=== PATIENT | female | born 1955 | race Caucasian/White ===

== ENCOUNTER → 2018-07-24 | Outpatient (CLI) | payer OTHER, SELFPAY ==
[2018-07-24 15:28] LABS: Hematocrit 37.4 % (37-47); Hemoglobin 12.8 g/dl (12.0-15.0); Mean Corp Hgb Conc 34.2 g/gl (32-36); Mean Corpuscular Hgb 29.9 pg (27.0-32.0); Mean Corpuscular Volume 87.4 fL (81-99); Mean Platelet Vol. 9.7 fl (6.2-12.0); Platelet Count 200 K/mm3 (150-450); RBC Distribution Width CV 13.1 % (11.6-14.6); RBC Distribution Width SD 41.8 fl (35.1-43.9); Red Blood Count 4.28 M/mm3 (4.2-5.4); White Blood Count 3.2 K/mm3 (4.4-11.0)
[2018-07-24 15:31] LABS: Scan Indicated on CBC? Y/N NO
[2018-07-24 15:47] LABS: Anion Gap 4 (5-15); BUN 11 mg/dL (7-18); BUN/Creat Ratio 17.2 RATIO (10-20); Calcium,Total 9.1 mg/dL (8.5-10.1); Chloride 108 mmol/L (98-107); Cholesterol 162 mg/dL (200); Creatinine, Serum 0.64 mg/dL (0.55-1.02); EST Glomerular Filtration Rate 99 mL/min (>60); Est Glom Filt Rate - Afr Amer 120 mL/min (>60); Glucose 87 mg/dL (74-106); High Density Lipoprotein 75 mg/dL; Sodium Level 141 mmol/L (136-145); T4 Free Direct 1.16 ng/dL (0.76-1.46); Thyroid Stim Hormone (TSH) 0.46 uIU/mL (0.358-3.74); Triglycerides 55 mg/dL; Very Low Density Lipoprotein 11 mg/dL (5-40)
[2018-07-24 17:30] LABS: Vitamin D,25 Hydroxy 40.1 ng/mL (29.95-100.01)
== END | disposition home or self-care (01) ==
LOC: MFPLAB 12:19
PROVIDERS: Family Provider Family Medicine; PCP Family Medicine; Referring Provider Family Medicine; Visit Provider Family Medicine
DX: R07.9 Chest pain, unspecified (principal); E55.9 Vitamin D deficiency, unspecified; E03.9 Hypothyroidism, unspecified
CPT/HCPCS: 36415; 80048; 80061; 82306; 84439; 84443; 85027

== ENCOUNTER → 2019-07-13 | Outpatient (CLI) | payer OTHER, SELFPAY ==
[2019-07-13 18:06] LABS: Vitamin D,25 Hydroxy 38.4 ng/mL
[2019-07-13 18:20] LABS: ALB/GLOB Ratio 1.1 RATIO (0.9-2.4); AST(SGOT) 17 U/L (15-37); Alanine Aminotransfer ALT/SGPT 22 U/L (13-56); Albumin, Serum 3.9 g/dL (3.2-5.0); Alkaline Phosphatase 98 U/L (45-117); Anion Gap 4 (5-15); BUN 10 mg/dL (7-18); BUN/Creat Ratio 14.9 RATIO (10-20); Calcium,Total 9.2 mg/dL (8.5-10.1); Chloride 105 mmol/L (98-107); Cholesterol 158 mg/dL (200); Creatinine, Serum 0.67 mg/dL (0.55-1.02); EST Glomerular Filtration Rate 94 mL/min (>60); Est Glom Filt Rate - Afr Amer 113 mL/min (>60); Globulin 3.4 g/dL (2.2-4.2); Glucose 94 mg/dL (74-106); High Density Lipoprotein 72 mg/dL; Potassium 3.4 mmol/L (3.5-5.1); Protein, Total 7.3 g/dL (6.4-8.2); Sodium Level 137 mmol/L (136-145); T4 Free Direct 1.28 ng/dL (0.76-1.46); Thyroid Stim Hormone (TSH) 0.56 uIU/mL (0.358-3.74); Triglycerides 54 mg/dL; Very Low Density Lipoprotein 11 mg/dL (5-40)
== END | disposition home or self-care (01) ==
LOC: MFPLAB 14:08
PROVIDERS: PCP Family Medicine; Visit Provider Family Medicine
DX: K58.9 Irritable bowel syndrome, unspecified (principal); E55.9 Vitamin D deficiency, unspecified; E03.9 Hypothyroidism, unspecified; Z13.1 Encounter for screening for diabetes mellitus
CPT/HCPCS: 36415; 80053; 80061; 82306; 84439; 84443

== ENCOUNTER → 2019-08-06 | Outpatient (CLI) | payer OTHER, SELFPAY ==
--- NOTE | 2019-08-06 14:18 | BI_ITS ---
MAMMOGRAPHY - BILATERAL SCREENING REASON FOR EXAM: Female, 64 years old. Routine annual screening examination. PERTINENT HISTORY: Mother with breast cancer. TECHNIQUE: Digital bilateral breast alfonso (3D mammographic acquisition) in the CC and MLO projections. 2-D mediolateral oblique (MLO) and craniocaudad (CC) views of both breasts were obtained. CAD: Full Field Digital Mammography with Computer Added Detection was performed. COMPARISON: Comparison is made with prior examination dated March 15, 2010. FINDINGS: Breast Composition: There are scattered areas of fibroglandular density. There are no dominant masses or suspicious calcifications. Stable small subcentimeter well-defined nodules in both axillary regions suggestive of small lymph nodes. No other significant abnormalities are identified. There has been no significant change since the prior study. BI/SCREEN MAMM (CAD) W/ALFONSO BILAT IMPRESSION: Stable bilateral screening mammogram. Yearly follow-up mammogram recommended. (A) ASSESSMENT CATEGORY: BIRADS Category 2: Benign. A letter regarding these results will be sent to the patient by the facility within 30 days. Approximately 10% of breast cancers are not detected by mammography. A normal mammogram should not delay biopsy of a clinically suspicious abnormality. [id number] Electronically Signed: Ciro Garvey, at 14:05 EDT , Service support ,
== END | disposition home or self-care (01) ==
LOC: OPBI 14:14
PROVIDERS: PCP Family Medicine; Referring Provider Family Medicine; Visit Provider Family Medicine
DX: Z12.31 Encounter for screening mammogram for malignant neoplasm of breast (principal)
CPT/HCPCS: 77063; 77067

== ENCOUNTER → 2020-07-13 08:06 | Outpatient (CLI) | payer MEDICARE, OTHER, SELFPAY ==
[2020-07-13 10:35] LABS: Vitamin D,25 Hydroxy 29.2 ng/mL
[2020-07-13 10:51] LABS: ALB/GLOB Ratio 1.1 RATIO (0.9-2.4); AST(SGOT) 16 U/L (15-37); Alanine Aminotransfer ALT/SGPT 25 U/L (13-56); Albumin, Serum 3.7 g/dL (3.2-5.0); Alkaline Phosphatase 120 U/L (45-117); Anion Gap 6 (5-15); BUN 10 mg/dL (7-18); BUN/Creat Ratio 15.9 RATIO (10-20); Calcium,Total 8.9 mg/dL (8.5-10.1); Chloride 104 mmol/L (98-107); Cholesterol 168 mg/dL (200); Creatinine, Serum 0.63 mg/dL (0.55-1.02); EST Glomerular Filtration Rate 101 mL/min (>60); Est Glom Filt Rate - Afr Amer 122 mL/min (>60); Globulin 3.5 g/dL (2.2-4.2); Glucose 95 mg/dL (74-106); High Density Lipoprotein 74 mg/dL; Potassium 3.8 mmol/L (3.5-5.1); Protein, Total 7.2 g/dL (6.4-8.2); Sodium Level 139 mmol/L (136-145); T4 Free Direct 1.15 ng/dL (0.76-1.46); Thyroid Stim Hormone (TSH) 1.67 uIU/mL (0.358-3.74); Triglycerides 78 mg/dL; Very Low Density Lipoprotein 16 mg/dL (5-40)
== END ==
PROVIDERS: PCP Family Medicine; Referring Provider Family Medicine; Visit Provider Family Medicine
DX: E03.9 Hypothyroidism, unspecified (principal); E55.9 Vitamin D deficiency, unspecified; Z13.220 Encounter for screening for lipoid disorders
CPT/HCPCS: 36415; 80053; 80061; 82306; 84439; 84443

== ENCOUNTER → 2020-07-28 08:47 | Outpatient (CLI) | payer MEDICARE, OTHER, SELFPAY ==
--- NOTE | 2020-07-28 08:56 | AAAS_ITS ---
Reason For Study: Screening for AAA Aorta Measurements Aorta Doppler Measurements Proximal aorta measures1.50 x 1.50cm. in cross- Peak systolic flow velocities within the proximal sectional axis. aorta measure 64.4 cm/sec. Proximal aorta measures1.52cm. in longitudinal Peak systolic flow velocities within the mid aorta axis. measure 61.1 cm/sec. Mid aorta measures1.43 x 1.40cm. in cross- Peak systolic flow velocities within the distal sectional axis. aorta measure 77.6 cm/sec. Mid aorta measures1.44cm. in longitudinal axis. Distal aorta measures1.50 x 1.51cm. in cross- sectional axis. Distal aorta measures1.56cm. in longitudinal axis. Left Iliac Artery Left iliac artery measures 0.94 x 0.94 cm. in the cross-sectional axis. Left iliac artery measures 0.91 cm. in the longitudinal axis. Peak systolic velocity in the left iliac artery measures 90.4 cm/sec. Right Iliac Artery Right iliac artery measures 1.05 x 1.06 cm. in the cross-sectional axis. Right iliac artery measures 1.04 cm. in the longitudinal axis. Peak systolic velocity in the right iliac artery measures 71 cm/sec. Procedure Aorta IVC Iliac vasculature or bypass grafts [id number]. Exam performed in department. VL/AAA Screening Interpretation Summary The dimensions of the intra-abdominal aorta are normal, without evidence of ane urysmal dilatation. The iliac arteries are normal in caliber bilaterally. The intra-abdominal aorta and iliac arteries appear patent, demonstrating normal, pulsatile arterial flow and normal peak sy stolic velocities. Ordering Physician: Luis E Cormier Referring Physician: Luis E Cormier Performed By: Tatiana Au RVT
== END ==
PROVIDERS: PCP Family Medicine; Referring Provider Family Medicine; Visit Provider Family Medicine
DX: Z13.6 Encounter for screening for cardiovascular disorders (principal)
CPT/HCPCS: 76706

== ENCOUNTER → 2021-03-08 12:13 | Outpatient (CLI) | payer MEDICARE, OTHER, SELFPAY ==
--- NOTE | 2021-03-08 12:16 | BI_ITS ---
MAMMOGRAPHY - BILATERAL SCREENING 3-D TOMOSYNTHESIS REASON FOR EXAM: Female, 66 years old. SCREENING PERTINENT HISTORY: No significant family history. TECHNIQUE: 2-D mammograms and 3-D Tomosynthesis of the breast (s) were performed. CAD was performed. COMPARISON: 08/06/2019 FINDINGS: The breast composition is composed of scattered fibroglandular density. Scattered benign calcifications are seen. No dense spiculated masses or suspicious microcalcifications are identified. No architectural distortion is identified. There is no skin thickening or retraction. There has been no significant change since the prior study. BI/SCRN MAMM (CAD)W/ALFONSO BILAT IMPRESSION: No mammographic signs of malignancy. Routine yearly mammograms recommended. ASSESSMENT CATEGORY: BIRADS Category 1: Negative. A letter regarding these results will be sent to the patient by the facility within 30 days. FOLLOW UP RECOMMENDATION: Yearly follow up mammogram recommended. (A) Approximately 10% of breast cancers are not detected by mammography. A normal mammogram should not delay biopsy of a clinically suspicious abnormality. Electronically Signed: Dustin Cage MD at 13:50 EST Tel , Service support ,
== END ==
PROVIDERS: PCP Family Medicine; Visit Provider Family Medicine
DX: Z12.31 Encounter for screening mammogram for malignant neoplasm of breast (principal)
CPT/HCPCS: 77063; 77067

== ENCOUNTER → 2021-12-14 | Outpatient (CLI) | payer MEDICARE, OTHER, SELFPAY ==
[2021-12-14 10:13] LABS: Vitamin D,25 Hydroxy 26.8 ng/mL
[2021-12-14 10:20] LABS: AST(SGOT) 18 U/L (15-37); Alanine Aminotransfer ALT/SGPT 24 U/L (13-56); Albumin, Serum 3.6 g/dL (3.2-5.0); Alkaline Phosphatase 108 U/L (45-117); Anion Gap 5 (5-15); BUN 12 mg/dL (7-18); BUN/Creat Ratio 19.4 RATIO (10-20); Calcium,Total 9.4 mg/dL (8.5-10.1); Chloride 106 mmol/L (98-107); Cholesterol 148 mg/dL (200); Creatinine, Serum 0.62 mg/dL (0.55-1.02); EST Glomerular Filtration Rate 102 mL/min (>60); Est Glom Filt Rate - Afr Amer 124 mL/min (>60); Globulin 3.5 g/dL (2.2-4.2); Glucose 95 mg/dL (74-106); High Density Lipoprotein 56 mg/dL; Potassium 4.6 mmol/L (3.5-5.1); Protein, Total 7.1 g/dL (6.4-8.2); Sodium Level 140 mmol/L (136-145); T4 Free Direct 1.24 ng/dL (0.76-1.46); Thyroid Stim Hormone (TSH) 0.38 uIU/mL (0.358-3.74); Triglycerides 73 mg/dL; Very Low Density Lipoprotein 15 mg/dL (5-40)
== END | disposition home or self-care (01) ==
LOC: MFPLAB 08:25
PROVIDERS: PCP Family Medicine; Referring Provider Family Medicine; Visit Provider Family Medicine
DX: Z00.00 Encounter for general adult medical examination without abnormal findings (principal); I10 Essential (primary) hypertension
CPT/HCPCS: 36415; 80053; 80061; 82306; 84439; 84443

== ENCOUNTER → 2022-03-12 | Outpatient (CLI) | payer MEDICARE, OTHER, SELFPAY ==
--- NOTE | 2022-03-12 13:29 | BI_ITS ---
MAMMOGRAPHY - BILATERAL SCREENING REASON FOR EXAM: Female, 67 years old. Routine annual screening examination. PERTINENT HISTORY: Mother with breast cancer. TECHNIQUE: Digital bilateral breast alfonso (3D mammographic acquisition) in the CC and MLO projections. 2-D mediolateral oblique (MLO) and craniocaudad (CC) views of both breasts were obtained. CAD: Full Field Digital Mammography with Computer Added Detection was performed. COMPARISON: Comparison is made with prior study dated 03/08/2021 and 08/06/2019. FINDINGS: Breast Composition: There are scattered areas of fibroglandular density. There are no dominant masses or suspicious calcifications. Stable small, subcentimeter well-defined nodules in the axillary regions of both breasts. No other significant abnormalities are identified. There has been no significant change since the prior study. BI/SCRN MAMM (CAD)W/ALFONSO BILAT IMPRESSION: Stable bilateral screening mammogram. Yearly follow-up mammogram recommended. (A) ASSESSMENT CATEGORY: BIRADS Category 2: Benign. A letter regarding these results will be sent to the patient by the facility within 30 days. Approximately 10% of breast cancers are not detected by mammography. A normal mammogram should not delay biopsy of a clinically suspicious abnormality. [id number] Electronically Signed: Ciro Garvey MD at 14:43 EST ,
== END | disposition home or self-care (01) ==
LOC: OPBI 13:27
PROVIDERS: PCP Family Medicine; Referring Provider Family Medicine; Visit Provider Family Medicine
DX: Z12.31 Encounter for screening mammogram for malignant neoplasm of breast (principal); Z80.3 Family history of malignant neoplasm of breast
CPT/HCPCS: 77063; 77067

== ENCOUNTER → 2022-05-22 | Outpatient (CLI) | payer MEDICARE, OTHER, SELFPAY ==
[2022-05-22 17:51] LABS: Hematocrit 38.4 % (37-47); Hemoglobin 12.8 g/dL (12.0-15.0); Mean Corp Hgb Conc 33.3 g/dL (32-36); Mean Corpuscular Hgb 30.2 pg (27.0-32.0); Mean Corpuscular Volume 90.6 fL (81-99); Mean Platelet Vol. 9.8 fl (6.2-12.0); Platelet Count 273 K/mm3 (150-450); RBC Distribution Width CV 12.8 % (11.6-14.6); Red Blood Count 4.24 M/mm3 (4.2-5.4); White Blood Count 4.2 K/mm3 (4.4-11.0)
[2022-05-22 18:59] LABS: AST(SGOT) 16 U/L (15-37); Alanine Aminotransfer ALT/SGPT 21 U/L (13-56); Albumin, Serum 3.7 g/dL (3.2-5.0); Alkaline Phosphatase 100 U/L (45-117); Anion Gap 8 (5-15); BUN 10 mg/dL (7-18); Calcium,Total 9.6 mg/dL (8.5-10.1); Chloride 104 mmol/L (98-107); Creatinine, Serum 0.71 mg/dL (0.55-1.02); EST Glomerular Filtration Rate 87 mL/min (>60); Est Glom Filt Rate - Afr Amer 105 mL/min (>60); Globulin 3.6 g/dL (2.2-4.2); Glucose 100 mg/dL (74-106); Hemoglobin A1c 5.3 % (3.8-5.6); Potassium 3.7 mmol/L (3.5-5.1); Protein, Total 7.3 g/dL (6.4-8.2); Sodium Level 139 mmol/L (136-145)
== END | disposition home or self-care (01) ==
LOC: MFPLAB 15:37
PROVIDERS: PCP Family Medicine; Referring Provider Family Medicine; Visit Provider Nurse Practitioner Family
DX: I10 Essential (primary) hypertension (principal); R60.9 Edema, unspecified
CPT/HCPCS: 36415; 80053; 83036; 85027

== ENCOUNTER → 2022-12-17 | Outpatient (CLI) | payer MEDICARE, OTHER, SELFPAY ==
[2022-12-17 17:47] LABS: Vitamin D,25 Hydroxy 26.9 ng/mL
[2022-12-17 17:59] LABS: Anion Gap 4 (5-15); BUN 7 mg/dL (7-18); BUN/Creat Ratio 10.4 RATIO (10-20); Calcium,Total 8.9 mg/dL (8.5-10.1); Chloride 108 mmol/L (98-107); Cholesterol 149 mg/dL (200); Creatinine, Serum 0.67 mg/dL (0.55-1.02); EST Glomerular Filtration Rate 93 mL/min (>60); Est Glom Filt Rate - Afr Amer 112 mL/min (>60); Glucose 95 mg/dL (74-106); High Density Lipoprotein 54 mg/dL; Potassium 3.8 mmol/L (3.5-5.1); Sodium Level 141 mmol/L (136-145); T4 Free Direct 1.15 ng/dL (0.76-1.46); Thyroid Stim Hormone (TSH) 1.48 uIU/mL (0.358-3.74); Triglycerides 259 mg/dL; Very Low Density Lipoprotein 52 mg/dL (5-40)
== END | disposition home or self-care (01) ==
LOC: MFPLAB 15:49
PROVIDERS: PCP Family Medicine; Visit Provider Family Medicine
DX: E55.9 Vitamin D deficiency, unspecified (principal); I10 Essential (primary) hypertension; E03.9 Hypothyroidism, unspecified
CPT/HCPCS: 36415; 80048; 80061; 82306; 84439; 84443

== ENCOUNTER → 2023-06-13 | Outpatient (CLI) | payer MEDICARE, OTHER, SELFPAY ==
--- NOTE | 2023-06-13 14:15 | BI_ITS ---
MAMMOGRAPHY - BILATERAL SCREENING REASON FOR EXAM: Female, 68 years old. Routine annual screening examination. PERTINENT HISTORY: Mother with breast cancer. TECHNIQUE: Digital bilateral breast alfonso (3D mammographic acquisition) in the CC and MLO projections. 2-D mediolateral oblique (MLO) and craniocaudad (CC) views of both breasts were obtained. CAD: Full Field Digital Mammography with Computer Added Detection was performed. COMPARISON: Comparison is made with prior study dated March 12, 2022 and March 08, 2021. FINDINGS: Breast Composition: There are scattered areas of fibroglandular density. There are no dominant masses or suspicious calcifications. Stable small subcentimeter well-defined nodules in the axillary region of both breasts these most likely represent cysts. No other significant abnormalities are identified. There has been no significant change since the prior study. BI/SCRN MAMM (CAD)W/ALFONSO BILAT IMPRESSION: Stable bilateral screening mammogram. Yearly follow-up mammogram recommended. (A) ASSESSMENT CATEGORY: BIRADS Category 2: Benign. A letter regarding these results will be sent to the patient by the facility within 30 days. Approximately 10% of breast cancers are not detected by mammography. A normal mammogram should not delay biopsy of a clinically suspicious abnormality. [id number] Electronically Signed: Ciro Garvey MD at 15:11 EDT ,
== END | disposition home or self-care (01) ==
PROVIDERS: PCP Family Medicine; Referring Provider Family Medicine; Visit Provider Family Medicine
DX: Z12.31 Encounter for screening mammogram for malignant neoplasm of breast (principal); Z85.3 Personal history of malignant neoplasm of breast
CPT/HCPCS: 77063; 77067

== ENCOUNTER → 2023-09-25 | Outpatient (CLI) | payer MEDICARE, OTHER, SELFPAY ==
[2023-09-25 18:53] LABS: Anion Gap 6 (5-15); BUN 10 mg/dL (7-18); BUN/Creat Ratio 14.7 RATIO (10-20); Calcium,Total 9.4 mg/dL (8.5-10.1); Chloride 105 mmol/L (98-107); Creatinine, Serum 0.68 mg/dL (0.55-1.02); EST Glomerular Filtration Rate 91 mL/min (>60); Est Glom Filt Rate - Afr Amer 111 mL/min (>60); Glucose 91 mg/dL (74-106); Potassium 3.4 mmol/L (3.5-5.1); Sodium Level 140 mmol/L (136-145); T4 Free Direct 1.23 ng/dL (0.76-1.46); Thyroid Stim Hormone (TSH) 1.09 uIU/mL (0.358-3.74)
[2023-09-25 19:05] LABS: Vitamin D,25 Hydroxy 24.2 ng/mL
== END | disposition home or self-care (01) ==
PROVIDERS: PCP Family Medicine; Referring Provider Family Medicine; Visit Provider Family Medicine
DX: E03.9 Hypothyroidism, unspecified (principal); E55.9 Vitamin D deficiency, unspecified; I10 Essential (primary) hypertension
CPT/HCPCS: 36415; 80048; 82306; 84439; 84443

== ENCOUNTER → 2024-06-14 | Outpatient (CLI) | payer MEDICARE, OTHER, SELFPAY ==
--- NOTE | 2024-06-14 14:44 | BI_ITS ---
EXAM: SCRN MAMM (CAD)W/ALFONSO BILAT DATE: 06/14/2024 CLINICAL HISTORY: F, Age 69 y/o , ANNUAL BREAST CANCER RISK ASSESSMENT: Has not been calculated. TECHNIQUE: Bilateral screening digital breast tomosynthesis with 2D and 3D images. Computer aided detection. COMPARISON: Prior exam(s) dated 06/13/2023 and 03/12/2022 FINDINGS: TISSUE DENSITY: The breast tissue is almost entirely fatty. Bilateral Breast Mammographic Findings: No suspicious masses, suspicious clustered microcalcifications, architectural distortion or secondary sign of malignancy is identified in either breast. Partially obscured stable isodense masses are seen in both breasts. Benign round microcalcifications are seen in both breasts. BI/SCRN MAMM (CAD)W/ALFONSO BILAT IMPRESSION: Right Breast: BIRADS 2 BENIGN FINDING. Left Breast: BIRADS 2 BENIGN FINDING. OVERALL FINAL ASSESSMENT: BIRADS 2 BENIGN FINDING RECOMMENDATION: Routine annual follow-up in 1 Year A letter with findings and recommendations will be mailed to the patient. Reading Location: [id number]
== END | disposition home or self-care (01) ==
LOC: OPBI 14:43
PROVIDERS: PCP Family Medicine; Referring Provider Family Medicine; Visit Provider Family Medicine
DX: Z12.31 Encounter for screening mammogram for malignant neoplasm of breast (principal)
CPT/HCPCS: 77063; 77067

== ENCOUNTER → 2024-11-05 | Outpatient (CLI) | payer MEDICARE, OTHER, SELFPAY ==
[2024-11-05 14:04] LABS: AST(SGOT) 19 U/L (<=31); Alanine Aminotransfer ALT/SGPT 13 U/L (<=34); Albumin, Serum 4.2 g/dL (3.4-4.8); Alkaline Phosphatase 110 U/L (35-104); Anion Gap 11 (5-15); BUN 11 mg/dL (4-19); BUN/Creat Ratio 16.2 RATIO (10-20); Calcium,Total 9.7 mg/dL (7.6-11.0); Carbon Dioxide 25.0 mmol/L (21.0-32.0); Chloride 103 mmol/L (98-108); Cholesterol 155 mg/dL (<=200); Globulin 2.7 g/dL (2.2-4.2); Glucose 102 mg/dL (70-99); Low Density Lipoprotein Calc. 75 mg/dL; Potassium 4.7 mmol/L (3.3-5.1); Triglycerides 51 mg/dL; Very Low Density Lipoprotein 10 mg/dL (5-40); cholesterol:hdl ratio screen 2.23
[2024-11-05 15:01] LABS: Vitamin D,25 Hydroxy 14.7 ng/mL (30-100)
== END | disposition home or self-care (01) ==
LOC: MFPLAB 09:57
PROVIDERS: PCP Family Medicine; Referring Provider Family Medicine; Visit Provider Family Medicine
DX: I10 Essential (primary) hypertension (principal); E03.9 Hypothyroidism, unspecified; E55.9 Vitamin D deficiency, unspecified
CPT/HCPCS: 36415; 80053; 80061; 82306; 84443

== ENCOUNTER → 2024-11-11 | Outpatient (CLI) | payer MEDICARE, OTHER, SELFPAY ==
--- NOTE | 2024-11-11 15:10 | BD_ITS ---
PROCEDURE: DEXA BONE DENSITY/APPEND SKEL 11/11/2024 REASON FOR EXAM: F, age 69 y/o . Postmenopausal. TECHNIQUE: Procedure Code: [id number] Modality: DX Procedure: DEXA BONE DENSITY/APPEND SKEL COMPARISON: None FINDINGS: BMD and T-SCORES Left femoral neck: 0.594 g/cm2, T-score -2.3 Femoral neck comparison data not recommended for monitoring change. Left total hip: 0.701 g/cm2, T-score -2.0 Right femoral neck: 0.552 g/cm2, T-score -2.7 Femoral neck comparison data not recommended for monitoring change. Right total hip: 0.659 g/cm2, T-score -2.3 Left 1/3 radius: 0.523 g/cm2, T-score -1.0 The World Health Organization has defined the following categories based on bone density: Normal bone density: T-score equal to or greater than -1.0 Osteopenia: T-score between -1.0 and -2.5 Osteoporosis: T-score equal to or less than -2.5 FRAX (or Comparable) Fracture Risk Assessment: 10 Year Probability of Fracture: Major Osteoporotic Fracture: 15% Hip Fracture: 3.8% (Note: FRAX is not to be reported in setting of normal range bone density, osteoporosis on DEXA, known history of osteoporosis, prior osteoporotic hip or vertebral fracture, or for any patient undergoing pharmacological treatment for bone loss.) The National Osteoporosis Foundation (NOF) recommends pharmacological treatment for patients with a FRAX 10-year risk of 3% or higher for a hip fracture, or 20% or higher for a major osteoporotic fracture, to prevent osteoporosis and reduce fracture risk. The patient does meet the pharmacological treatment recommendations for prevention of osteoporosis. BD/Dexa Bone Density/Append Skel IMPRESSION: OSTEOPOROSIS. Recommend follow-up as clinically warranted. Reading Location: [place] [id number]
--- OUTSIDE RECORDS SUMMARY | 2024-11-11 21:26 | XMS RPT_ITS | CCD ---
Author Organization [facility] Care Team Providers Care Atm Servicer Name Role Phone Dr. Marques Cormier Primary Care Provider Dr. Marques Cormier Referring Provider PIPER Reynaga Attending Provider Casa KILLIAN, Dr. Mohan Primary Care Provider Casa KILLIAN, Dr. Mohan Attending Provider Casa KILLIAN, Dr. Mohan Referring Provider SELF Referring Unavailable SELF Referring Unavailable OTTO WARNER Attending Unavailable Dr. Marques Cormier MD Primary Care Provider Dr. Marques Cormier MD Attending Provider Casa KILLIAN, Dr. Mohan Referring Provider 1( [phone] Marques Cormier Referring Unavailable Charlieney, Christopher Primary Care Unavailable Marques Cormier Attending Unavailable Casa, Christopher Referring Unavailable Casa, Christopher Primary Care Unavailable Marques Cormier Attending Unavailable Charlieney, Christopher Primary Care Unavailable Marques Cormier Attending Unavailable Ranney, Christopher Referring Unavailable Ranney, Christopher Referring Unavailable Liam Reynaga Attending Unavailable Charlieney, Christopher Primary Care Unavailable Everton Berrios Attending Unavailable Rannafisa, Christopher Referring Unavailable Ranney, Christopher Primary Care Unavailable Ranney, Christopher Referring Unavailable Bruno Saleem Attending Unavailable Ranney, Christopher Primary Care Unavailable Everton Berrios Attending Unavailable Ranney, Christopher Referring Unavailable Ranney, Christopher Primary Care Unavailable Everton Berrios Attending Unavailable Ranney, Christopher Referring Unavailable Ranney, Christopher Primary Care Unavailable Medications Current Medications Medication Drug Class(es) Dates Sig (Normalized) Sig (Original) amLODIPine 5 mg oral tablet (2 sources) Dihydropyridine Calcium Channel Roly Start: 09-14-2023 take 1 tablet by mouth once daily Amlodipine 5 mg tablet Active 5 mg PO daily September 14, 2023 12:00am levothyroxine sodium 0.1 mg oral tablet (2 sources) l-Thyroxine Start: 09-14-2023 Levothyroxine 100 mcg tablet Active ug PO September 14, 2023 12:00am losartan potassium 100 mg oral tablet (2 sources) Angiotensin 2 Receptor Roly Start: 09-14-2023 take 1 tablet by mouth once daily Losartan 100 mg tablet Active 100 mg PO daily September 14, 2023 12:00am Completed/Discontinued Medications Medication Drug Class(es) Dates Sig (Normalized) Sig (Original) amoxicillin 875 mg / clavulanate 125 mg oral tablet (5 sources) Penicillin-class Antibacterial Start: 09-14-2023 End: 09-21-2023 Amoxicillin-Pot Clavulanate 875-125 mg tablet Discontinued 1 {tbl} PO TWICE A DAY 14 7 0 September 14, 2023 12:00am September 20, 2023 12:00am September 21, 2023 12:05am Start: 05-08-2023 End: 05-18-2023 Amoxicillin-Pot Clavulanate 875-125 mg tablet Discontinued 1 {tbl} PO Q12H 20 May 08, 2023 1:00am May 17, 2023 1:00am May 18, 2023 1:04am Acute sinusitis, unspecified Start: 05-08-2023 End: 05-18-2023 take 1 tablet by mouth every twelve hours Amoxicillin-Pot Clavulanate Discontinued 1 TABLET PO Q12H 27 12May 08, 2023 1:00am May 18, 2023 1:04am cephalexin 500 mg oral capsule (2 sources) Cephalosporin Antibacterial Start: 12-03-2023 End: 12-11-2023 take 1 capsule by mouth three times daily Cephalexin 500 mg capsule Discontinued 500 mg PO THREE TIMES A DAY 21 0 December 03, 2023 12:00am December 11, 2023 1:50pm polymyxin b [id number] unt/ml / trimethoprim 1 mg/ml ophthalmic solution (2 sources) Dihydrofolate Reductase Inhibitor Antibacterial, Polymyxin-class Antibacterial Start: 09-14-2023 End: 09-24-2023 Polymyxin B Sulf-Trimethoprim 10,000 unit- 1 mg/mL drops Discontinued 1 - 2 NMA OPHTHALMIC .Q3-6H 10 10 0 September 14, 2023 12:00am September 23, 2023 12:00am September 24, 2023 12:05am while awake; do not exceed 6 doses in 24 hours prednisoLONE 15 mg disintegrating oral tablet (2 sources) Corticosteroid Start: 12-03-2023 End: 12-11-2023 take 15 mg by mouth once daily Prednisolone 15 mg/5 mL solution Discontinued 15 mg PO DAILY 30 0 December 03, 2023 12:00am December 11, 2023 1:50pm Problems Active Problems Problem Classification Problem Date Documented Da te Episodic/Chronic Essential hypertension (1 source) Essential (primary) hypertension; Translations: [Essential (primary) hypertension] Onset: 11-10-2024 Chronic Inflammation; infection of eye (except that caused by tuberculosis or sexually transmitteddisease) (2 sources) Conjunctivitis; Translations: [Unspecified conjunctivitis] 09-14-2023 Episodic Open wounds of extremities (3 sources) Laceration of right middle finger; Translations: [Laceration without foreign body of right middle finger without damage to nail, initial encounter] Onset: 12-26-2023 11-25-2023 Episodic Other upper respiratory infections (7 sources) Acute sinusitis; Translations: [Acute sinusitis, unspecified] Onset: 01-31-2024 05-09-2023 Episodic Residual codes; unclassified (1 source) Asymptomatic menopausal state; Translations: [Asymptomatic menopausal state] Onset: 11-10-2024 Episodic Past or Other Problems Problem Classification Problem Date Documented Da te Episodic/Chronic Immunizations and screening for infectious disease (1 source) Encounter for immunization; Translations: [Encounter for immunization] Onset: 12-04-2023 Episodic Other screening for suspected conditions (not mental disorders or infectious disease) (1 source) Encounter for screening mammogram for malignant neoplasm of breast; Translations: [Encounter for screening mammogram for malignant neoplasm of breast] Onset: 06-17-2024 Episodic Results Test Name Value Interpretation Reference Range Facility Anion gap in Serum or Plasma Ordered By: Marques Cormier on 11-05-2024 Anion gap [Moles/Vol] 11 mmol/L 5-[address] [facility] BUN/creatinine ratioOrdered By: Marques Cormier on 11-05-2024 Urea nitrogen/Creatinine [Mass ratio] 16.2 mg/mg 10-20 [facility] Bilirubin, totalOrdered By: Marques Cormier on 11-05-2024 Bilirubin [Mass/Vol] 0.67 mg/dL 0.00-1.30 [facility] Calculated very low density lipoprotein (VLDL) cholesterol measurementOrdered By: Marques Cormier on 11-05-2024 Calculated very low density lipoprotein (VLDL) cholesterol measurement 10 mg/dL 5-40 [facility] Carbon dioxide, total [Moles /volume] in Central venous bloodOrdered By: Marques Cormier on 11-05-2024 CO2 [Moles/Vol] 25.0 mmol/L 21.0-32.0 [facility] Chloride assayOrdered By: Win Cormier on 11-05-2024 Chloride [Moles/Vol] 103 mmol/L 98-108 [facility] Comprehensive Metabolic Prof ilon 11-05-2024 Albumin [Mass/Vol] 4.2 g/dL Normal 3.4-4.8 [facility] Comment on above: Performed By: #### L 500.4050, L506.1001, L500.4100, [id number] #### [facility] [address] [place], [address] Albumin/Globulin [Mass ratio] 1.5 {ratio} Normal 0.9-2.4 [facility] Comment on above: Performed By: #### L 500.4050, L506.1001, L500.4100, [id number] #### [facility] [address] [place], [address] ALK PHOS 110 U/L High 35-104 [facility] Comment on above: Performed By: #### L 500.4050, L506.1001, L500.4100, [id number] #### [facility] [address] [place], [address] ALT [Catalytic activity/Vol] 13 U/L Normal <=34 [facility] Comment on above: Performed By: #### L 500.4050, L506.1001, L500.4100, [id number] #### [facility] [address] [place], [address] AST [Catalytic activity/Vol] 19 U/L Normal <=31 [facility] Comment on above: Performed By: #### L 500.4050, L506.1001, L500.4100, [id number] #### [facility] [address] [place], [address] Bilirubin [Mass/Vol] 0.67 mg/dL Normal 0.00-1.30 [facility] Comment on above: Performed By: #### L 500.4050, L506.1001, L500.4100, [id number] #### [facility] [address] [place], [address] BUN/CRE 16.2 RATIO Normal 10-20 [facility] Comment on above: Performed By: #### L 500.4050, L506.1001, L500.4100, [id number] #### [facility] [address] [place], [address] Calcium [Mass/Vol] 9.7 mg/dL Normal 7.6-11.0 [facility] Comment on above: Performed By: #### L 500.4050, L506.1001, L500.4100, [id number] #### [facility] [address] [place], [address] Chloride [Moles/Vol] 103 mmol/L Normal 98-108 [facility] Comment on above: Performed By: #### L 500.4050, L506.1001, L500.4100, [id number] #### [facility] [address] [place], [address] CO2 [Moles/Vol] 25.0 mmol/L Normal 21.0-32.0 [facility] Comment on above: Performed By: #### L 500.4050, L506.1001, L500.4100, [id number] #### [facility] [address] [place], [address] Creatinine [Mass/Vol] 0.70 mg/dL Normal 0.70-1.[address] [facility] Comment on above: Performed By: #### L 500.4050, L506.1001, L500.4100, [id number] #### [facility] [address] [place], [address] GAP 11 Normal 5-15 [facility] Comment on above: Performed By: #### L 500.4050, L506.1001, L500.4100, [id number] #### [facility] [address] [place], [address] GFR/1.73 sq M.predicted among non-blacks MDRD (S/P/Bld) [Vol rate/Area] 93 mL/min/{1.73_m2} Normal >60 [facility] Comment on above: Result Comment: mL/m in/1.73m2 CKD-EPI Creatinine Equation (2020) Performed By: #### L 500.4050, L506.1001, L500.4100, [id number] #### [facility] [address] [place], [address] Globulin (S) [Mass/Vol] 2.7 g/dL Normal 2.2-4.2 [facility] Comment on above: Performed By: #### L 500.4050, L506.1001, L500.4100, [id number] #### [facility] [address] [place], [address] Glucose [Mass/Vol] 102 mg/dL High 70-99 [facility] Comment on above: Performed By: #### L 500.4050, L506.1001, L500.4100, [id number] #### [facility] [address] [place], [address] Potassium [Moles/Vol] 4.7 mmol/L Normal 3.3-5.[address] [facility] Comment on above: Performed By: #### L 500.4050, L506.1001, L500.4100, [id number] #### [facility] [address] [place], [address] Sodium [Moles/Vol] 139 mmol/L Normal 133-145 [facility] Comment on above: Performed By: #### L 500.4050, L506.1001, L500.4100, [id number] #### [facility] [address] [place], [address] T PROT 6.9 g/dL Normal 5.9-8.4 [facility] Comment on above: Performed By: #### L 500.4050, L506.1001, L500.4100, [id number] #### [facility] [address] [place], [address] Urea nitrogen [Mass/Vol] 11 mg/dL Normal 4-19 [facility] Comment on above: Performed By: #### L 500.4050, L506.1001, L500.4100, [id number] #### [facility] [address] [place], [address] Glomerular filtration rate ( GFR) estimation/1.73 sq m using serum, plasma, or whole bOrdered By: Marques Cormier on 11-05-2024 GFR/1.73 sq M.predicted among non-blacks MDRD (S/P/Bld) [Vol rate/Area] 93 mL/min/{1.73_m2} >60 [facility] Comment on above: mL/min/1.73m2 CKD-EP I Creatinine Equation (2020) LDL calc ser/plasOrdered By: Marques Cormier on 11-05-2024 Cholesterol in LDL [Mass/Vol] 75 mg/dL [facility] Comment on above: Hrjexwrqbe=826-308 m g/dL & Higher Ydgh=064 mg/dL or greaterFriedwald Equation for LDL-C Laboratory - Chemistry and C hemistry - challengeOrdered By: Marques Cormier on 11-05-2024 AST [Catalytic activity/Vol] 19 U/L <32 [facility] Lipid Profileon 11-05-2024 CHOL:HDL 2.23 Normal [facility] Comment on above: Performed By: #### L 500.4050, L506.1001, L500.4100, L501.9520 #### [facility] [address] [place], [address] Cholesterol [Mass/Vol] 155 mg/dL Normal <=200 [facility] Comment on above: Result Comment: Chol esterol level, Desirable <200 mg/dL Borderline high cholesterol 200-239 mg/dL High cholesterol >=240 mg/dL Recommendations of the NCEP Adult Treatment Panel for the following risk-cutoff thresholds for the [place]ag[place] population. Performed By: #### L 500.4050, L506.1001, L500.4100, L501.9520 #### [facility] [address] [place], [address] Cholesterol in HDL [Mass/Vol] 70 mg/dL Normal [facility] Comment on above: Result Comment: Wendie onal Cholesterol Education Program (NCEP) guidelines: <40 mg/dL: Low HDL-cholesterol (major risk factor for CHD) >= 60 mg/dL: High HDL-cholesterol (negative risk factor for CHD) HDL-cholesterol is affected by a number of factors, e.g. smoking, exercise, hormones, sex and age. Performed By: #### L 500.4050, L506.1001, L500.4100, L501.9520 #### [facility] [address] [place], [address] Cholesterol in LDL [Mass/Vol] 75 mg/dL Normal [facility] Comment on above: Result Comment: Bord rfqrqz=826-020 mg/dL Higher Xxqj=832 mg/dL or greater Friedwald Equation for LDL-C Performed By: #### L 500.4050, L506.1001, L500.4100, L501.9520 #### [facility] [address] [place], [address] Cholesterol in VLDL [Mass/Vol] 10 mg/dL Normal 5-40 [facility] Comment on above: Performed By: #### L 500.4050, L506.1001, L500.4100, L501.9520 #### [facility] [address] [place], [address] Triglyceride [Mass/Vol] 51 mg/dL Normal [facility] Comment on above: Result Comment: The drugs N-Acetylcysteine and Metamizole may falsely depress this assay. Normal range: <150 mg/dL Borderline High: 150-199 mg/dL High: 200-499 mg/dL Very High: >500 mg/dL Performed By: #### L 500.4050, L506.1001, L500.4100, L501.9520 #### [facility] [address] [place], [address] Potassium measurement (mass/ volume)Ordered By: Marques Cormier on 11-05-2024 Potassium (Unsp spec) [Mass/Vol] 4.7 mmol/L 3.3-5.1 [facility] Screening total cholesterol/ high density lipoprotein (HDL) cholesterol ratioOrdered By: Marques Cormier on 11-05-2024 Cholesterol.total/Lilliana sterol in HDL [Mass ratio] 2.23 {ratio} [facility] Serum creatinine measurement (mass/volume)Ordered By: Marques Cormier on 11-05-2024 Creatinine [Mass/Vol] 0.70 mg/dL 0.70-1.[address] [facility] Serum globulin measurementOr dered By: Marques Cormeir on 11-05-2024 Globulin (S) [Mass/Vol] 2.7 g/dL 2.2-4.2 [facility] Serum glucose measurement (m ass/volume)Ordered By: Marques Cormier on 11-05-2024 Glucose [Mass/Vol] 102 mg/dL High 70-99 [facility] Serum or plasma alanine huang otransferase (ALT) measurementOrdered By: Marques Cormier on 11-05-2024 ALT [Catalytic activity/Vol] 13 U/L <35 [facility] Serum or plasma albumin veronica urement (mass/volume)Ordered By: Marques Cormier on 11-05-2024 Albumin [Mass/Vol] 4.2 g/dL 3.4-4.8 [facility] Serum or plasma albumin/glob ulin mass ratioOrdered By: Marques Cormier on 11-05-2024 Albumin/Globulin [Mass ratio] 1.5 {ratio} 0.9-2.4 [facility] Serum or plasma alkaline moe sphatase measurementOrdered By: Marques Cormier on 11-05-2024 ALP [Catalytic activity/Vol] 110 U/L High 35-104 [facility] Serum or plasma calcium veronica urement (mass/volume)Ordered By: Marques Cormier on 11-05-2024 Calcium [Mass/Vol] 9.7 mg/dL 7.6-11.0 [facility] Serum or plasma cholesterol in HDL measurement (mass/volume)Ordered By: Marques Cormier on 11-05-2024 Cholesterol in HDL [Mass/Vol] 70 mg/dL >40 [facility] Comment on above: National Cholesterol Education Program (NCEP) guidelines:<40 mg/dL: Low HDL-cholesterol (major risk factor for CHD)>= 60 mg/dL: High HDL-cholesterol (negative risk factor for CHD)HDL-cholesterol is affected by a number of factors, e.g. smoking, exercise, hormones, sex and age. Serum or plasma cholesterol measurement (mass/volume)Ordered By: Marques Cormier on 11-05-2024 Cholesterol [Mass/Vol] 155 mg/dL <201 [facility] Comment on above: Cholesterol level, D esirable <200 mg/dLBorderline high cholesterol 200-239 mg/dLHigh cholesterol >=240 mg/dLRecommendations of the NCEP Adult Treatment Panel for the following risk-cutoff thresholds for the [place] population. Serum or plasma urea nitroge n measurement (mass/volume)Ordered By: Marques Cormier on 11-05-2024 Urea nitrogen [Mass/Vol] 11 mg/dL 4-19 [facility] Sodium levelOrdered By: Karol Cormier on 11-05-2024 Sodium [Moles/Vol] 139 mmol/L 133-145 [facility] TSH DL <= 0.005 mIU/L QnOrde red By: Marques Cormier on 11-05-2024 TSH Qn 1.890 uIU/mL 0.300-4.200 [facility] Thyroid Stim Hormone (TSH)on 11-05-2024 TSH 1.890 uIU/mL Normal 0.300-4.200 [facility] Comment on above: Performed By: #### L 500.4050, L506.1001, L500.4100, L501.9520 #### [facility] [address] [place], [address] Total proteinOrdered By: Chitra Cormier on 11-05-2024 Protein [Mass/Vol] 6.9 g/dL 5.9-8.4 [facility] Triglycerides measurementOrd ered By: Marques Cormier on 11-05-2024 Triglyceride [Mass/Vol] 51 mg/dL <199 [facility] Comment on above: The drugs N-Acetylcy steine and Metamizole may falsely depress this assay. Normal range: <150 mg/dLBorderline High: 150-199 mg/dLHigh: 200-499 mg/dLVery High: >500 mg/dL Vitamin D,25 Hydroxyon 11-05 Vitamin D 25-OH 14.7 ng/mL Low 30-100 [facility] Comment on above: Result Comment: Jeannette min D Status Deficiency: <20 ng/mL (50nmol/L) Insufficiency: 20-30 ng/mL (50-75 nmol/L) Sufficiency: 30-100 ng/mL (75-250 nmol/L) Toxicity: >100 ng/mL (>250 nmol/L) Performed By: #### L 500.4050, L506.1001, L500.4100, L501.9520 #### [facility] [address] [place], [address] CNOVon 07-27-2024 CNOV Office Visit ([facility] ) AUBREE LIMA ([id number]) 1955 F Date Time Provider Department 07/27/24 11:00 AM OTTO WARNER During your visit today, we recorded the following information about you: Temperature Pulse Respiration Blood pressure 97.6 degrees 64/minute 18/minute 152/66 Weight 76.6 kg Otto Warner APRN.MANAGER OF ADMINISTRATION 07/29/2024 1:33 PM Signed MEDICAL BREAST HISTORY of PRESENT ILLNESS: Aubree Lima is a 69 year old postmenopausal woman who presents to the [facility] [place] today for follow up on her mammogram. She states she was told there was an abnormality on imaging done at an outside institute. She did bring the reports and discs with her imaging. She denies any symptoms in the breast, no palpable masses, skin changes, nipple discharge or inversion. PERSONAL BREAST HISTORY: Past breast history (prior to this encounter) is as follows: Breast biopsy: No Breast cysts: Yes Breast surgery: No Breast cancer: No CANCER SURVEILLANCE: Mammograms: Yes, Date in Epic: 06/14/2024; results - benign Breast MRI: No Colonoscopy: due now RISK FACTORS FOR BREAST CANCER: Age at the onset of menses: 15 years of age. P: 0 Age at the of first child: Patient is nulliparous. She did not have children and did not breast feed. Age at menopause: 30 years of age. Post-menopausal hormone therapy: No She is S/P total hysterectomy with negative pathology done at age 30 She is postmenopausal and does not use control. History of Mantle Radiation prior to the age of 30: No Current Weight: 168 lbs Mammographic density: The breasts are largely replaced by fat Personal History of Benign Atypical Breast Biopsy: No Alcohol use: Never PAST MEDICAL HISTORY: PAST MEDICAL HISTORY Diagnosis Date H/O: hysterectomy History of anemia 03/07/2010 Hyperthyroidism had radioactive medication Hypothyroidism following radioiodine therapy 03/07/2010 Personal history of hyperthyroidism 03/07/2010 PAST SURGICAL HISTORY: PAST SURGICAL HISTORY Procedure Laterality Date HYSTERECTOMY HX GERONIMO,BSO REMOVAL GALLBLADDER 2006 Cholecystectomy SOCIAL HISTORY: Social History Tobacco Use Smoking status: Former Current packs/day: 0.00 Types: Cigarettes Start date: 09/12/1967 Quit date: 09/11/1977 Years since quittin.9 Substance Use Topics Alcohol use: No Drug use: No Caffeine intake: 2 liter of coke / day working on cutting back Exercise: Physically active FAMILY HISTORY: Family history of breast cancer: Mother in her 60s, Paternal Aunt Family history of ovarian cancer: Maternal Grandmother Number of sisters: 1 Number of maternal aunts: 1 Number of paternal aunts: 4 Ashkenazi Ancestry: no Has Patient had Genetic Testing? No Other Cancer: Father with lung cancer, Brother with skin cancer, Maternal Grandmother with lung cancer, Sister with skin cancer, Paternal Uncle with leukemia There is no family history of prostate, colon, uterine, pancreatic, gastric, brain, renal cell or thyroid cancer. There is no family history of melanoma, sarcoma or leukemia. Osteoporosis: None Stroke: Mother Blood Clot: None Heart attack: Maternal Grandfather Thyroid Nodule or Goiter: None Autism: None FAMILY HISTORY Problem Relation Age of Onset Cancer Father lung cancer 2000 Breast Cancer Mother Breast removed 1999 Asthma Mother Cancer Brother skin and eye Cancer Maternal Grandmother stomach cancer Heart Maternal Grandfather heart attack MEDICATIONS: levothyroxine (SYNTHROID) 100 mcg ORAL tablet Take one(1) tablet daily on an empty stomach. ALLERGIES: ALLERGIES Not on File REVIEW OF SYSTEMS: GENERAL: No weight loss, malaise or fevers NECK: Negative for lumps, goiter, pain and significant neck swelling RESPIRATORY: Negative for cough, hemoptysis, wheezing, COPD, dyspnea or shortness of breath CARDIOVASCULAR: Negative for chest pain, leg swelling, hypertension, CHF or palpitations GI: No nausea, vomiting, or diarrhea : No history of dysuria, frequency or incontinence INSPECTION MACHINE TENDER: Negative for abnormal vaginal bleeding, abnormal vaginal discharge MUSCULOSKELETAL: Negative for joint pain or swelling, back pain or muscle pain SKIN: Negative for lesions, rash, and itching HEMATOLOGY/LYMPHOLOGY : Negative for prolonged bleeding, bruising easily or swollen nodes ENDOCRINE: Negative for cold or heat intolerance, polyuria, polydipsia and goiter The sensitive examination was discussed with the Patient or Patient's Authorized Roadmaster. As applicable, any other physician, advance practice provider, medical student, or other health professional student that will be observing or involved in the sensitive examination for educational or training purposes was discussed with the Patient or Authorized Roadmaster. (more content not included)... Normal [facility] Breast imaging reportOrdered By: Madai Dash on 06-15-[address] [facility] Imaging Services [address] [place] [address] [id number] SCRN MAMM (CAD)W/ALFONSO BILAT MR#: [id number] Acct: [id number] Name: AUBREE LIMA Rep #: [id number] : 1955 F 69 From: Rahul Dash DO PCP: Dr. Marques Cormier MD Status: [facility] Study:SCRN MAMM (CAD)W/ALFONSO BILAT Date of Exa m: 06/14/24 Exam# [id number] Ordering Dr: Sumaya Cormier MD EXAM: SCRN MAMM (CAD)W/ALFONSO BILAT DATE: 06/14/2024 CLINICAL HISTORY: F, Age 69 y/o , ANNUAL BREAST CANCER RISK ASSESSMENT: Has not been calculated. TECHNIQUE: Bilateral screening digital breast tomosynthesis with 2D and 3D images. Computeraided detection. COMPARISON: Prior exam(s) dated 06/13/2023 and 03/12/2022 FINDINGS: TISSUE DENSITY: The breast tissue is almost entirely fatty. Bilateral Breast Mammographic Findings: No suspicious masses, suspicious clustered microcalcifications, architectural distortion or secondary sign of malignancy is identified in either breast. Partially obscured stable isodense masses are seenin both breasts. Benign round microcalcifications are seen in both breasts. BI/SCRN MAMM (CAD)W/ALFONSO BILAT IMPRESSION: Right Breast: BIRADS 2 BENIGN FINDING. Left Breast: BIRADS 2 BENIGN FINDING. OVERALL FINAL ASSESSMENT: BIRADS 2 BENIGN FINDING RECOMMENDATION: Routine annual follow-up in 1 Year A letter with findings and recommendations will be mailed to the patient. Reading Location: [id number] CC: Dr. Marques Cormier MD ~ Casing Finisher And Stuffer: Signed [facility] SCRN MAMM (CAD)W/ALFONSO BILATo n 06-14-2024 SCRN MAMM (CAD)W/ALFONSO BILAT [facility] Imaging Services [address] [place] [address] [id number] SCRN MAMM (CAD)W/ALFONSO BILAT MR#: [id number] Acct: [id number] Name: AUBREE LIMA Rep #: [id number] : 1955 F 69 From: Madai Perdue PCP: Dr. Marques Cormier MD Status: REG CLI Study: SCRN MAMM (CAD)W/ALFONSO BILAT Date of Exam: 10/01 Exam# [id number] Ordering Dr: Marques Cormier EXAM: SCRN MAMM (CAD)W/ALFONSO BILAT DATE: 06/14/2024 CLINICAL HISTORY: F, Age 69 y/o , ANNUAL BREAST CANCER RISK ASSESSMENT: Has not been calculated. TECHNIQUE: Bilateral screening digital breast tomosynthesis with 2D and 3D images. Computer aided detection. COMPARISON: Prior exam(s) dated 06/13/2023 and 03/12/2022 FINDINGS: TISSUE DENSITY: The breast tissue is almost entirely fatty. Bilateral Breast Mammographic Findings: No suspicious masses, suspicious clustered microcalcifications, architectural distortion or secondary sign of malignancy is identified in either breast. Partially obscured stable isodense masses are seen in both breasts. Benign round microcalcifications are seen in both breasts. BI/SCRN MAMM (CAD)W/ALFONSO BILAT IMPRESSION: Right Breast: BIRADS 2 BENIGN FINDING. Left Breast: BIRADS 2 BENIGN FINDING. OVERALL FINAL ASSESSMENT: BIRADS 2 BENIGN FINDING RECOMMENDATION: Routine annual follow-up in 1 Year A letter with findings and recommendations will be mailed to the patient. Reading Location: [id number] CC: Dr. Marques Cormier MD Casing Finisher And Stuffer: Signed Normal [facility] Office Visit Reporton 2023 Office Visit Report [facility] [address] [place] [address] OFFICE VISIT Date of Service: 01/31/24 MR#: [id number] Acct: [id number] Patient: AUBREE LIMA Rep #: [id number] : 1955 Provider: PIPER Schofield Age/Sex: 68/F Location: [facility] Status: Signed Intake Vital Signs 12/03/23 13:52 01/31/24 09:23 01/31/24 10:01 Height 1.7 m 1.7 m 1.7 m Weight: 73.992 kg 71.781 kg BMI 25.5 24.7 BP 122/86 H 122/84 H Position Sitting Pulse 79 68 Temp 98.6 F 98.4 F Temp Source Temporal Oral Pulse Oximetry (%) 98 98 Oxygen Delivery Method room air room air Intake Visit Reasons: HEADACHE/COUGH/FEVER Chief Complaint: uri Accompanied by: Self Allergies No Known Allergies Allergy (Verified 01/31/24 10:01) Medications ???Medication ???Instructions ???Recorded ???Confirmed ???Type amlodipine 5 mg tablet 5 mg PO QDAY 09/14/23 01/31/24 History levothyroxine 100 mcg tablet mcg PO 09/14/23 01/31/24 History losartan 100 mg tablet 100 mg PO QDAY 09/14/23 01/31/24 History Have you fallen in the past year?: No Nurse's Note: Patient has dry hives, BUSCH,chills, fever and ST. Patient states this has been going on for 4 days. [facility] Medical History (Updated 01/31/24 @ 10:27 by PIPER Gan) Laceration of right middle finger Social History Smoking Status: Current every day smoker HPI HPI Chief Complaint: uri Details: AUBREE LIMA, is a 68 F who presents to the office today for uri symptoms. She has been sick for 3 days. She has congestion, sore throat, occasional cough, fevers, chills, sweats. She has some sinus pressure and drainage. She has been dry heaving. She is not using anything OTC at this point. ROS Const Constitutional: No chills, fatigue or fever(s) ENT ENT: Positive for nasal congestion, sinus pressure and sore throat; No ear or mastoid pain Resp Respiratory: Positive for cough; No shortness of breath or wheezing Gastro GI: Positive for nausea/dyspepsia and vomiting (dry heaves) Endo Endocrine: No fatigue Aller/Imm Allergy/Immunologic: No wheezing Exam Const General: cooperative, healthy appearing, comfortable, no acute distress, well developed and well groomed Nutritional Appearance: average body habitus and well nourished Orientation: alert, awake and oriented x3 HENMT Head: normocephalic and atraumatic Ears: hearing grossly normal bilaterally, external ears normal and TM's normal bilaterally Nose: external nose normal, nares normal and no nasal polyps Throat: posterior oropharynx normal, tonsils normal and postnasal drainage Resp Effort Inspection: normal respiratory effort, able to speak in complete sentences, symmetric chest movement and no cough Auscultation: Bilateral: Clear to Auscultation Cardio Rate: regular rate Rhythm: regular rhythm Heart Sounds: no murmurs Results POC Rapid Strep A Office Rapid Strep A Negative Last Edit by Kym Bailey MA on 01/31/24 10:08 Coding Level of Care Code Off vis,est,level 2 Diagnoses Viral URI with cough J06.9 Assessment and Plan Assessment and Plan (1) Viral URI with cough: Status: Acute Plan: sick x 3 days with congestion, sore throat, cough, dry heaves. Pt declines flu/covid testing. Minimal findings on exam. Strep test is negative at this time. Discussed that this is likely a viral syndrome. Recommended rest and hyrdation. Mucinex prn congestion. if no improvement follow up 1 week for re-eval or if worsening go to the ER Orders: Orders POC Rapid Strep A Today J02.9 - Acute pharyngitis, unspecified Clinical Quality Measures Falls Risk Screening/Assistive Devices Have you fallen in the past year?: No 01/31/24 1028 Date Bruno Vanessa Hernandez Signature: Date (if applicable) CC: Normal [facility] Office Visit Reporton 2023 Office Visit Report [facility] [address] [place] [address] OFFICE VISIT Date of Service: 11/25/23 MR#: [id number] Acct: [id number] Patient: AUBREE LIMA Rep #: [id number] : 1955 Provider: PIPER Arora Age/Sex: 68/F Location: [facility] Status: Signed Intake Vital Signs 09/14/23 10:58 Height 5 ft 7 in 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 Chief Complaint: WC f/u finger laceration Allergies No Known Allergies Allergy (Verified 12/11/23 13:50) Have you fallen in the past year?: No Office Procedures [facility] Billing Sheet Testing Post-Accident Non-DOT Breath Alcohol Test: Yes Post-Accident NON-DOT Drug Screen in [facility]: Yes Clinical Quality Measures Falls Risk Screening/Assistive Devices Have you fallen in the past year?: No 12/22/23 1058 Date Everton Hernandez Signature: Date (if applicable) CC: Normal [facility] Urgent Care Visit Reporton 1 Urgent Care Visit Report [facility] [address], [address] [place] [address] OFFICE VISIT Date of Service: 12/11/23 MR#: [id number] Acct: [id number] Name: AUBREE LIMA Rep #: [id number] : 1955 Provider: PIPER Trujillo Age/Sex: 68/F Location: [facility] Status: Signed Intake Vital Signs 12/03/23 13:52 12/11/23 13:50 Height 5 ft 7 in Weight: 163 lb 2 oz BMI 25.5 BP 122/86 H 162/86 H Blood Pressure Location Lt brachial Position Sitting Sitting Respiration 17 Pulse 79 72 Pulse Source NIBP Temp 98.6 F 98.5 F Temp Source Temporal Temporal Pulse Oximetry (%) 98 98 Oxygen Delivery Method room air room air Intake Visit Reasons: 1 W FU/[employer] Chief Complaint: WC f/u finger laceration Manufacturing Worker Required: No Is patient in pain?: No Allergies No Known Allergies Allergy (Verified 12/11/23 13:50) Medications ???Medication ???Instructions ???Recorded ???Confirmed ???Type amlodipine 5 mg tablet 5 mg PO QDAY 09/14/23 09/14/23 History levothyroxine 100 mcg tablet mcg PO 09/14/23 09/14/23 History losartan 100 mg tablet 100 mg PO QDAY 09/14/23 09/14/23 History Is last menstrual period known: No Post menopausal: Yes Patient : No Have you fallen in the past year?: No PFSH Medical History (Updated 11/25/23 @ 08:20 by Everton SALDAÑA, PA) Laceration of right middle finger Social History Smoking Status: Current every day smoker HPI HPI Chief Complaint: WC f/u finger laceration Details: AUBREE LIMA, is a 68 F who presents to the office today for follow-up of a work-related injury which occurred on 11/25/2023. On that date the patient sustained a laceration to her right middle finger. Today the patient states having no issue with the right middle finger other than some tingling at the tip of her finger. She denies numbness or loss of range of motion. She has had no fever, chills or sweats. No other associated symptoms or alleviating/aggravati ng factors. ROS Const Constitutional: No other (As above) Exam Const General: cooperative, healthy appearing and no acute distress Resp Effort Inspection: normal respiratory effort and able to speak in complete sentences Cardio Rate: regular rate Skin Trauma: laceration (2.7 cm RMF laceration) Extrem General: normal to inspection Coding Level of Care Code Off vis,est,level 3 Diagnoses Laceration of right middle finger S61.212A Assessment and Plan Assessment and Plan (1) Laceration of right middle finger: Status: Acute Plan: [employer] 14 filled out releasing patient back to work today without restrictions. Patient advised ongoing wound management. Advised to follow-up should she be worsening symptoms or new concerns. Patient advised to use ibuprofen or Tylenol as needed for pain unless contraindicated. Patient verbalized understanding and agreement with all the above. Clinical Quality Measures Falls Risk Screening/Assistive Devices Have you fallen in the past year?: No 12/11/23 1400 Date Liam SALDAÑA Cosigner Signature: Date (if applicable) CC: Normal [facility] Urgent Care Visit Reporton 0 12-03-2023 Urgent Care Visit Report [facility] [address] [facility], [address] [place] [address] OFFICE VISIT Date of Service: 12/03/23 MR#: [id number] Acct: [id number] Name: AUBREE LIMA Rep #: [id number] : 1955 Provider: PIPER Arora Age/Sex: 68/F Location: [facility] Status: Signed Intake Vital Signs 09/14/23 10:58 12/03/23 13:52 Height 5 ft 7 in 5 ft 7 in Weight: 163 lb 2 oz BMI 25.5 BP 122/86 H Position Sitting Pulse 79 Temp 98.6 F Temp Source Temporal Pulse Oximetry (%) 98 Oxygen Delivery Method room air Intake Visit Reasons: R MIDDLE FINGER CUT/ PRECISION PRODUCTS Chief Complaint: right 3rd finger laceration--WC Allergies No Known Allergies Allergy (Verified 12/03/23 13:55) Medications ???Medication ???Instructions ???Recorded ???Confirmed ???Type amlodipine 5 mg tablet 5 mg PO QDAY 09/14/23 09/14/23 History levothyroxine 100 mcg tablet mcg PO 09/14/23 09/14/23 History losartan 100 mg tablet 100 mg PO QDAY 09/14/23 09/14/23 History cephalexin 500 mg capsule 500 mg PO TID #21 caps 12/03/23 12/03/23 Rx prednisolone 15 mg/5 mL oral 15 mg (5 mL) PO DAILY #30 mL 12/03/23 12/03/23 Rx solution Have you fallen in the past year?: No PFSH Medical History (Updated 11/25/23 @ 08:20 by Everton SALDAÑA, PA) Laceration of right middle finger Social History Smoking Status: Current every day smoker HPI HPI Chief Complaint: right 3rd finger laceration--WC Details: AUBREE LIMA, is a 68 F who presents to the office today for status post right middle finger palmar DP laceration gets as sharp machine part at work on 11/25/2023 and reported to the [facility] the same day at which time x 6 SI sutures of 4-0 Ethilon were placed to the same as well as Tdap update, given work restrictions and is here for follow-up today. Patient does note loss of sensation distal to the laceration site though no loss of strength or function at injury site or distally. She appreciates mild increased tenderness proximal to the wound site with slight increase in swelling though no erythema or warmth or discharge expressed from wound site. Admits wound care compliance and work restrictions as established last evaluation here. No xztc-wxa-uqcfckl products taken to assist. No other associated symptoms and no other alleviating/aggravati ng factors. ROS Const Constitutional: No other (As above) Exam Const General: cooperative, healthy appearing and no acute distress Nutritional Appearance: average body habitus Orientation: alert and awake Resp Effort Inspection: normal respiratory effort and able to speak in complete sentences Cardio Rate: regular rate Pulses: radial pulses present Skin General: no rashes or lesions noted Trauma: laceration (2.7 cm RMF palmar DP laceration well-approximated with x 6 SI sutures with RMF DP increased diameter when compared to LMF DP) Neuro General: patient alert and patient awake Cognition: normal cognition Speech: speech normal Extrem General: normal to inspection Psych Appearance: grossly normal Mental Status: mental status grossly normal Mood: congruent mood Affect: normal affect Speech and Movement: speech and movement normal Attitude: cooperative Diagnoses Laceration of right middle finger S61.212A Assessment and Plan Assessment and Plan (1) Laceration of right middle finger: Status: Acute Plan: RTW with 1 to 2 pound lifting restrictions and keeping wound site clean dry and covered at all times as noted on today's [employer] 14. Cephalexin as prescribed today. Supportive measures as instructed today. Follow-up in the now clinic approximately 1 week for reevaluation, sooner should symptoms worsen/signs of infection or any other concerns develop. Patient and spouse both state acknowledging understanding all the above. Coding Level of Care Code Off vis,est,level 3 Assessment and Plan Assessment and Plan Medications: New cephalexin 500 mg PO TID 21 caps 0RF prednisolone 15 mg (5 mL) PO DAILY 30 mL 0RF Clinical Quality Measures Falls Risk Screening/Assistive Devices Have you fallen in the past year?: No 12/03/23 1447 Date Everton Hernandez Signature: Date (if applicable) CC: Normal [facility] Urgent Care Visit Reporton 0 11-25-2023 Urgent Care Visit Report [facility] [address], [address] [place] [address] OFFICE VISIT Date of Service: 11/25/23 MR#: [id number] Acct: [id number] Name: AUBREE LIMA Rep #: [id number] : 1955 Provider: PIPER Arora Age/Sex: 68/F Location: [facility] Status: Signed Intake Vital Signs 09/14/23 10:58 11/25/23 07:57 Height 5 ft 7 in Weight: 162 lb BMI 25.3 BP 140/90 H 132/70 H Blood Pressure Location Lt radial Lt brachial Position Sitting Sitting Respiration 18 Pulse 71 61 Pulse Source NIBP Temp 99.8 F H 98.5 F Temp Source Temporal Temporal Pulse Oximetry (%) 98 100 Oxygen Delivery Method room air room air Intake Visit Reasons: CUT ON RT MIDDLE FINGER/ PRECISION PRODUCTS Chief Complaint: right 3rd finger laceration--WC Manufacturing Worker Required: No Is patient in pain?: Yes Allergies No Known Allergies Allergy (Verified 11/25/23 07:58) Is last menstrual period known: No Post menopausal: Yes Patient : No Have you fallen in the past year?: No [facility] Medical History (Updated 11/25/23 @ 08:20 by PIPER Naidu) Laceration of right middle finger Social History Smoking Status: Current every day smoker HPI HPI Chief Complaint: right 3rd finger laceration--WC Details: AUBREE LIMA, is a 68 F who presents to the office today for initial evaluation status post right middle finger palmar DP laceration gets as sharp machine part at work immediately prior to arrival here today. Patient notes no loss of sensation or strength or function at injury site or distally. Unknown last Td. Vsfch-mevf-bxjjomje. PMH NC. No lpvx-rmf-jxkvces products taken to assist. No other associated symptoms and no other alleviating/aggravati ng factors. ROS Const Constitutional: No other (As above) Exam Const General: cooperative, healthy appearing and no acute distress Nutritional Appearance: average body habitus Orientation: alert and awake Resp Effort Inspection: normal respiratory effort and able to speak in complete sentences Cardio Rate: regular rate Pulses: radial pulses present Skin General: no rashes or lesions noted Trauma: laceration (2.7 cm RMF palmar DP laceration; see procedure) Neuro General: patient alert and patient awake Cognition: normal cognition Speech: speech normal Extrem General: normal to inspection Psych Appearance: grossly normal Mental Status: mental status grossly normal Mood: congruent mood Affect: normal affect Speech and Movement: speech and movement normal Attitude: cooperative Office Procedures Laceration Repair Procedure performed by: Everton Bruce Explained risks and benefits to parent: Yes Informed consent given: Yes Consent signed: No (Verbal consent given) Sedation: No Anesthesia: 2% lidocaine (1ml field block) Irrigation: saline Preparation: chlorhexidine Wound exploration: none Deep closure: No Skin closure: nylon (4-0 Ethilon x 6 SI) Topical treatment: mupiricin Tetanus toxoid ordered: Yes Patient tolerated procedure: well Complications: No Immunizations Boostrix Tdap 2.5 Lf unit-8 mcg-5 Lf/0.5 mL intramuscular syringe Performing Provider: PIPER Naidu Performing Location: [facility] Administered by: Anna Almodovar MA on 11/25/23 08:17 Dose Route Admin Location Dispensed Lot Number Expiration Date [facility] Man ufacturer 0.5 mL IM Left Deltoid 0.5 mL [id number] 11/29/25 86889-840-48 [employer] VIS Given Date VIS Provided VIS Publication Date 11/25/23 Single Vaccine 20 Eligibility Eligibility Date Funding Source None Coding Level of Care Code Attention Automobile Salesman Diagnoses Laceration of right middle finger S61.212A Comment 82683, 12418 Assessment and Plan Assessment and Plan (1) Laceration of right middle finger: Status: Acute Plan: Off work rest of shift today, returning to work tomorrow with 1 to 2 pound lifting restrictions and keeping wound site clean dry and covered at all times as noted on today's [employer] 14. Tdap updated today. Supportive measures as instructed today. Follow-up in the now clinic approximately 1 week for reevaluation, sooner should symptoms worsen/signs of infection or any other concerns develop. Patient and spouse both state acknowledging understanding all the above. This note was generated with [employer] dictation software. It may contain incorrect words, spelling, and punctuation that were not noted in checking the note before signing. Orders: Orders Tdap Immunization Today Z23 - Encounter for immunization Clinical Quality Measures Falls Risk Screening/Assistive Devices Have you fallen in the past year?: No 11/25/23 0825 Date (more content not included)... Normal [facility] Basophil percentageOrdered B y: Luis E Cormier on 12-17-2022 Chloride [Moles/Vol] 108 mmol/L 98-107 [facility] Cholesterol [Mass/Vol] 149 mg/dL <200 [facility] Comment on above: <200 mg/dL Desirable 200-240 mg/dL Borderline >240 mg/dL High Risk Glucose [Mass/Vol] 95 mg/dL 74-106 [facility] Potassium [Moles/Vol] 3.8 mmol/L 3.5-5.[address] [facility] Sodium [Moles/Vol] 141 mmol/L 136-145 [facility] Triglyceride [Mass/Vol] 259 mg/dL <199 [facility] Comment on above: The drugs N-Acetylcy steine and Metamizole may falsely depress this assay.Serum Triglycerides Reference Interval Normal <150 mg/dL Borderline high 150 - 199 mg/dL High 200 - 499 mg/dL Very High > or = 500 mg/dL Laboratory - Chemistry and C hemistry - challengeOrdered By: Luis E Cormier on 12-17-2022 CO2 [Moles/Vol] 29.0 mmol/L 21.0-32.0 [facility] Free T4 [Mass/Vol] 1.15 ng/dL 0.76-1.46 [facility] Urea nitrogen/Creatinine [Mass ratio] 10.4 mg/mg 10- [facility] No Panel InformationOrdered By: Luis E Cormier on 12-17-2022 Estimated GFR (MDRD) Amer 112 mL/min >60 [facility] Comment on above: GFR Calc Estimated GFR (MDRD) Non-Af Amer 93 mL/min >60 [facility] Comment on above: Non- GFR Calc Thyroid Stimulating Hormone (TSH) 1.48 uIU/mL 0.358-3.74 [facility] Vitamin D 25-Hydroxy 26.9 ng/mL [facility] Comment on above: Vitamin D 25(OH) Sta tus Range Deficiency <20 ng/mL (50nmol/L) Insufficiency 20 - 30 ng/mL (50 - 75 nmol/L) Sufficiency 30 - 100 ng/mL (75 - 250 nmol/L) Toxicity >100 ng/mL (>250 nmol/L) Serum or plasma calcium veronica urement (mass/volume)Ordered By: Luis E Cormier on 12-17-2022 Calcium [Mass/Vol] 8.9 mg/dL 8.5-10.1 [facility] Serum or plasma cholesterol in HDL measurement (mass/volume)Ordered By: Luis E Cormier on 12-17-2022 Cholesterol in HDL [Mass/Vol] 54 mg/dL >40 [facility] Comment on above: The drugs N-Acetylcy steine and Metamizole may falsely depress this assay. Reference Range HDL <40 mg/dL Low HDL Cholesterol HDL >or= 60 mg/dL High HDL Cholesterol Serum or plasma cholesterol in VLDL measurement (mass/volume)Ordered By: Luis E Cormier on 12-17-2022 Cholesterol in VLDL [Mass/Vol] 52 mg/dL 5-40 [facility] Serum or plasma creatinine m easurement (mass/volume)Ordered By: Luis E Cormier on 12-17-2022 Creatinine [Mass/Vol] 0.67 mg/dL 0.55-1.[address] [facility] Comment on above: The validity of the calculated GFR & GFRAA in patients over 70 years has not been determined. Clinical correlation is essential. Serum or plasma low density lipoprotein (LDL) cholesterol measurement (mass/volume)Ordered By: Luis E Cormier on 12-17-2022 Cholesterol in LDL [Mass/Vol] 43 mg/dL 0-130 [facility] Serum or plasma urea nitroge n measurement (mass/volume)Ordered By: Luis E Cormier on 12-17-2022 Urea nitrogen [Mass/Vol] 7 mg/dL 7-18 [facility] Thin prep Papanicolaou smear with manual screeningOrdered By: Luis E Cormier on 12-17-2022 Thin prep Papanicolaou smear with manual screening 4 5-15 [facility] Basophil percentageOrdered B y: Alina Stathopoulos on 05-22-2022 Bilirubin [Mass/Vol] 0.50 mg/dL 0.20-1.00 [facility] Comment on above: For patients on eltr ombopag therapy, use of Dimension [place] TBIL is not recommended. Chloride [Moles/Vol] 104 mmol/L 98-107 [facility] Glucose [Mass/Vol] 100 mg/dL 74-106 [facility] Comment on above: Fasting Glucose resu lt from 100 to 125 mg/dL suggests IMPAIRED HOMEOSTASIS per A.D.A. criteria. Potassium [Moles/Vol] 3.7 mmol/L 3.5-5.[address] [facility] Protein [Mass/Vol] 7.3 g/dL 6.4-8.2 [facility] Sodium [Moles/Vol] 139 mmol/L 136-145 [facility] WBC (Bld) [#/Vol] 4.2 10*3/uL 4.4-11.0 [facility] Blood erythrocytes count (nu mber/volume)Ordered By: Alina Hussein on 05-22-2022 RBC (Bld) [#/Vol] 4.24 10*6/uL 4.2-5.4 [place] Blood hemoglobin measurement (mass/volume)Ordered By: Alina Hussein on 05-22-2022 Hemoglobin (Bld) [Mass/Vol] 12.8 g/dL 12.0-15.0 [facility] Blood platelet mean volumeOr dered By: Alina Hussein on 05-22-2022 Platelet mean volume (Bld) [Entitic vol] 9.8 fL 6.2-12.0 [facility] Determination of erythrocyte mean corpuscular volume (MCV)Ordered By: Alina Hussein on 05-22-2022 MCV (RBC) [Entitic vol] 90.6 fL 81-99 [facility] Hematocrit Auto (Bld) [Volum e fraction]Ordered By: Alina Hussein on 05-22-2022 Hematocrit (Bld) [Volume fraction] 38.4 % 37-47 [facility] Laboratory - Chemistry and C hemistry - challengeOrdered By: Alina Hussein on 05-22-2022 ALP [Catalytic activity/Vol] 100 U/L 45-117 [facility] ALT [Catalytic activity/Vol] 21 U/L 13-56 [facility] CO2 [Moles/Vol] 27.0 mmol/L 21.0-32.0 [facility] Globulin (S) [Mass/Vol] 3.6 g/dL 2.2-4.2 [facility] Urea nitrogen/Creatinine [Mass ratio] 14.0 mg/mg 10-20 [facility] Laboratory - Hematology and Cell countsOrdered By: Alina Hussein on 05-22-2022 Erythrocyte distribution width (RBC) [Entitic vol] 42.0 fL 35.1-43.9 [facility] Erythrocyte distribution width (RBC) [Ratio] 12.8 % 11.6-14.6 [facility] MCH (RBC) [Entitic mass] 30.2 pg 27.0-32.0 [facility] MCHC Auto (RBC) [Mass/Vol]Or dered By: Alina Statpatricio on 05-22-2022 MCHC (RBC) [Mass/Vol] 33.3 g/dL 32-[address] [facility] No Panel InformationOrdered By: Alina Statblaiseoulkalee on 05-22-2022 Estimated GFR (MDRD) Amer 105 mL/min >60 [facility] Comment on above: GFR Calc Estimated GFR (MDRD) Non-Af Amer 87 mL/min >60 [facility] Comment on above: Non- GFR Calc Platelets bldOrdered By: Serg rand Statblaiseoulkalee on 05-22-2022 Platelets (Bld) [#/Vol] 273 10*3/uL 150-450 [facility] Serum or plasma albumin veronica urement (mass/volume)Ordered By: Alina Stathopoulos on 05-22-2022 Albumin [Mass/Vol] 3.7 g/dL 3.2-5.0 [facility] Serum or plasma albumin/glob ulin mass ratioOrdered By: Alina Stathopoulos on 05-22-2022 Albumin/Globulin [Mass ratio] 1.0 {ratio} 0.9-2.4 [facility] Serum or plasma calcium veronica urement (mass/volume)Ordered By: Alina Hussein on 05-22-2022 Calcium [Mass/Vol] 9.6 mg/dL 8.5-10.1 [facility] Serum or plasma creatinine m easurement (mass/volume)Ordered By: Alina Hussein on 05-22-2022 Creatinine [Mass/Vol] 0.71 mg/dL 0.55-1.[address] [facility] Comment on above: The validity of the calculated GFR & GFRAA in patients over 70 years has not been determined. Clinical correlation is essential. Serum or plasma urea nitroge n measurement (mass/volume)Ordered By: Alina Keenan on 05-22-2022 Urea nitrogen [Mass/Vol] 10 mg/dL 7-18 [facility] Thin prep Papanicolaou smear with manual screeningOrdered By: [facility] on 05-22-2022 Thin prep Papanicolaou smear with manual screening 16 U/L 15-37 [facility] Thin prep Papanicolaou smear with manual screening 8 5-15 [facility] Whole blood hemoglobin A1c/t otal hemoglobin ratio (mass fraction)Ordered By: Alina Hussein on 05-22-2022 HbA1c (Bld) [Mass fraction] 5.3 % 3.8-5.6 [facility] Comment on above: Normal < 5.7 % Predi abetic 5.7 - 6.4 % Diabetic >or= 6.5 % Please note range changes. Basophil percentageon 2021 Bilirubin [Mass/Vol] 0.60 mg/dL 0.20-1.00 [facility] Work Phone: Comment on above: For patients on eltr ombopag therapy, use of Dimension [place] TBIL is not recommended. Chloride [Moles/Vol] 106 mmol/L 98-107 [facility] Work Phone: Cholesterol [Mass/Vol] 148 mg/dL <200 [facility] Work Phone: Comment on above: <200 mg/dL Desirable 200-240 mg/dL Borderline >240 mg/dL High Risk Glucose [Mass/Vol] 95 mg/dL 74-106 [facility] Work Phone: Potassium [Moles/Vol] 4.6 mmol/L 3.5-5.[address] [facility] Work Phone: Protein [Mass/Vol] 7.1 g/dL 6.4-8.2 [facility] Work Phone: Sodium [Moles/Vol] 140 mmol/L 136-145 [facility] Work Phone: Triglyceride [Mass/Vol] 73 mg/dL <199 [facility] Work Phone: Comment on above: The drugs N-Acetylcy steine and Metamizole may falsely depress this assay.Serum Triglycerides Reference Interval Normal <150 mg/dL Borderline high 150 - 199 mg/dL High 200 - 499 mg/dL Very High > or = 500 mg/dL Laboratory - Chemistry and C hemistry - challengeon 12-14-2021 ALP [Catalytic activity/Vol] 108 U/L 45-117 [facility] Work Phone: ALT [Catalytic activity/Vol] 24 U/L 13-56 [facility] Work Phone: CO2 [Moles/Vol] 29.0 mmol/L 21.0-32.0 [facility] Work Phone: Free T4 [Mass/Vol] 1.24 ng/dL 0.76-1.46 [facility] Work Phone: Globulin (S) [Mass/Vol] 3.5 g/dL 2.2-4.2 [facility] Work Phone: Urea nitrogen/Creatinine [Mass ratio] 19.4 mg/mg 10-20 [facility] Work Phone: No Panel Informationon 12-14 Estimated GFR (MDRD) Amer 124 mL/min >60 [facility] Work Phone: Comment on above: GFR Calc Estimated GFR (MDRD) Non-Af Amer 102 mL/min >60 [facility] Work Phone: Comment on above: Non- GFR Calc Thyroid Stimulating Hormone (TSH) 0.38 uIU/mL 0.358-3.74 [facility] Work Phone: Vitamin D 25-Hydroxy 26.8 ng/mL [facility] Work Phone: Comment on above: Vitamin D 25(OH) Sta tus Range Deficiency <20 ng/mL (50nmol/L) Insufficiency 20 - 30 ng/mL (50 - 75 nmol/L) Sufficiency 30 - 100 ng/mL (75 - 250 nmol/L) Toxicity >100 ng/mL (>250 nmol/L) Serum or plasma albumin veronica urement (mass/volume)on 12-14-2021 Albumin [Mass/Vol] 3.6 g/dL 3.2-5.0 [facility] Work Phone: Serum or plasma albumin/glob ulin mass ratioon 12-14-2021 Albumin/Globulin [Mass ratio] 1.0 {ratio} 0.9-2.4 [facility] Work Phone: Serum or plasma calcium veronica urement (mass/volume)on 12-14-2021 Calcium [Mass/Vol] 9.4 mg/dL 8.5-10.1 [facility] Work Phone: Serum or plasma cholesterol in HDL measurement (mass/volume)on 12-14-2021 Cholesterol in HDL [Mass/Vol] 56 mg/dL >40 [facility] Work Phone: Comment on above: The drugs N-Acetylcy steine and Metamizole may falsely depress this assay. Reference Range HDL <40 mg/dL Low HDL Cholesterol HDL >or= 60 mg/dL High HDL Cholesterol Serum or plasma cholesterol in VLDL measurement (mass/volume)on 12-14-2021 Cholesterol in VLDL [Mass/Vol] 15 mg/dL 5-40 [facility] Work Phone: Serum or plasma creatinine m easurement (mass/volume)on 12-14-2021 Creatinine [Mass/Vol] 0.62 mg/dL 0.55-1.[address] [facility] Work Phone: Comment on above: The validity of the calculated GFR & GFRAA in patients over 70 years has not been determined. Clinical correlation is essential. Serum or plasma low density lipoprotein (LDL) cholesterol measurement (mass/volume)on 12-14-2021 Cholesterol in LDL [Mass/Vol] 77 mg/dL 0-130 [facility] Work Phone: Serum or plasma urea nitroge n measurement (mass/volume)on 12-14-2021 Urea nitrogen [Mass/Vol] 12 mg/dL 7-18 [facility] Work Phone: Thin prep Papanicolaou smear with manual screeningon 12-14-2021 Thin prep Papanicolaou smear with manual screening 18 U/L 15-37 [facility] Work Phone: Thin prep Papanicolaou smear with manual screening 5 5-15 [facility] Work Phone: Vital Signs Date Time Vital Sign Value Performing Clinician Faci lity 05-08-2023 17:23-0500 Body height 170.[address] Marques Cormier Work Phone: [facility] 05-08-2023 17:23-0500 Body mass index (BMI) [Ratio] 26.6 kg/m2 Dr. Marques Cormire Work Phone: [facility] 05-08-2023 17:23-0500 Body temperature 98.4 [degF] Dr. Marques Cormier Work Phone: [facility] 05-08-2023 17:23-0500 Body weight 77.[address] Marques Cormier Work Phone: [facility] 05-08-2023 17:23-0500 Diastolic blood pressure 84 mm[Hg] Dr. Marques Cormier Work Phone: [facility] 05-08-2023 17:23-0500 Heart rate 79 /min Dr. Marques Cormier Work Phone: [facility] 05-08-2023 17:23-0500 Respiratory rate 14 /min Dr. Marques Cormier Work Phone: [facility] 05-08-2023 17:23-0500 SaO2% (BldA) [Mass fraction] 98 % Dr. Marques Cormier Work Phone: [facility] 05-08-2023 17:23-0500 Systolic blood pressure 120 mm[Hg] Dr. Marques Cormier Work Phone: [facility] Encounters Encounter Date Encounter Type Care Provider Facility Start: 11-11-2024 ambulatory Marques Cormier Faci lity:[facility] Start: 11-05-2024 End: 11-05-[address] Marques Cormier MD Work Phone: -Laboratory [facility] Start: 11-05-2024 End: 11-05-[address] Marques Cormier MD -Laboratory [facility] Start: 11-05-2024 End: 11-05-2024 ambulatory Marques Cormier Facility:[facility] Start: 07-27-2024 End: 07-27-2024 ambulatory SELF Facility:[facility] Start: 06-14-2024 End: 06-14-[address] Marques Cormier MD Work Phone: [facility] Work Phone: Start: 06-14-2024 End: 06-14-[address] Marques Cormier MD -Outpatient Breast Imaging Work Phone: Start: 06-14-2024 End: 06-14-2024 ambulatory Marques Cormier Facility:[facility] Start: 01-31-2024 End: 01-31-2024 ambulatory Marques Cormier Facility:[facility] Start: 12-11-2023 End: 12-11-2023 ambulatory Marques Cormier Facility:[facility] Start: 12-03-2023 End: 12-03-2023 ambulatory Everton SALDAÑA Facility:[facility] Start: 11-25-2023 End: 11-25-2023 ambulatory Everton SALDAÑA Facility:[facility] Start: 06-13-2023 End: 06-13-[address] Marques Cormier Work Phone: [facility] Work Phone: Start: 06-13-2023 End: 06-13-[address] Marques Cormier Work Phone: [facility]-Outpatient Breast Imaging Work Phone: Start: 05-08-2023 End: 05-08-[address] Marques Cormier Work Phone: [facility] Work Phone: Start: 12-17-2022 End: 12-17-2022 ambulatory [facility] Work Phone: Start: 12-17-2022 End: 12-17-2022 Patient encounter procedure [facility] Start: 05-22-2022 End: 05-22-2022 ambulatory [facility] Work Phone: Start: 05-22-2022 End: 05-22-2022 Patient encounter procedure [facility] Start: 03-12-2022 End: 03-12-2022 ambulatory [facility] Work Phone: Start: 03-12-2022 End: 03-12-2022 Patient encounter procedure [facility]-Outpatient Breast Imaging Start: 12-14-2021 End: 12-14-2021 ambulatory [facility] Work Phone: Start: 12-14-2021 End: 12-14-2021 Patient encounter procedure [facility] Procedures Date Procedure Procedure Detail Performing Clinician Start: 11-05-2024 Vitamin D, 25-hydrox y measurement Dr. Marques Cormier MD Work Phone: Comment on above: Vitamin D StatusDefi ciency: <20 ng/mL (50nmol/L)Insufficiency: 20-30 ng/mL (50-75 nmol/L)Sufficiency: 30-100 ng/mL (75-250 nmol/L)Toxicity: >100 ng/mL (>250 nmol/L) Start: 06-14-2024 Screening mammography Elfego Cormier MD Work Phone: Start: 06-13-2023 Screening mammography Elfego Cormier Work Phone: Start: 03-12-2022 Screening mammography Immunizations Immunization Date Immunization Notes Care Provider Fa cili 11-25-2023 tetanus toxoid, reduced diphtheria toxoid, and acellular pertussis vaccine, adsorbed Dr. Marques Cormier MD Work Phone: [facility] Payers Date Payer Category Payer Self-pay [id number] 2023 Unknown [id number] 2023 Unknown [id number] 2020 Medicare [id number] Unknown [id number] Unknown [id number] 2.16.8 [id number] Unknown [id number] 2.16.8 [id number] Unknown [id number] 2.16.8 [id number] Unknown [id number] 2.16.8 [id number] Unknown [id number] 2.16.8 [id number] Unknown [id number] 2.16.8 [id number] Unknown [id number] 2.16.8 [id number] Unknown [id number] 2.16.8 [id number] Social History Date Type Detail Facility Start: 12-05-2014 End: 05-08-2023 Tobacco smoking status MTIS Unknown if ever smoked [facility] Start: 1955 Sex Assigned At Female [facility] Start: 01-31-2024 [facility] Start: 06-17-2024 Sex Female (finding) [facility] Progress note 07-27-2024 Note Date & Type Note Facility 07-27-2024 Note HNO ID: [id number] Author: OTTO WARNER APRN.MANAGER OF ADMINISTRATION Service: ? Author Type: Nurse Practitioner Type: Progress Notes Filed: 07/29/2024 13:33 Note Text: MEDICAL BREAST HISTORY of PRESENT ILLNESS: Aubree Lima is a 69 year old postmenopausal woman who presents to the [facility] [place] today for follow up on her mammogram. She states she was told there was an abnormality on imaging done at an outside institute. She did bring the reports and discs with her imaging. She denies any symptoms in the breast, no palpable masses, skin changes, nipple discharge or inversion. PERSONAL BREAST HISTORY: Past breast history (prior to this encounter) is as follows: Breast biopsy: No Breast cysts: Yes Breast surgery: No Breast cancer: No CANCER SURVEILLANCE: Mammograms: Yes, Date in Epic: 06/14/2024; results - benign Breast MRI: No Colonoscopy: due now RISK FACTORS FOR BREAST CANCER: Age at the onset of menses: 15 years of age. P: 0 Age at the of first child: Patient is nulliparous. She did not have children and did not breast feed. Age at menopause: 30 years of age. Post-menopausal hormone therapy: No She is S/P total hysterectomy with negative pathology done at age 30 She is postmenopausal and does not use control. History of Mantle Radiation prior to the age of 30: No Current Weight: 168 lbs Mammographic density: The breasts are largely replaced by fat Personal History of Benign Atypical Breast Biopsy: No Alcohol use: Never PAST MEDICAL HISTORY: PAST MEDICAL HISTORY Diagnosis Date H/O: hysterectomy History of anemia 03/07/2010 Hyperthyroidism had radioactive medication Hypothyroidism following radioiodine therapy 03/07/2010 Personal history of hyperthyroidism 03/07/2010 PAST SURGICAL HISTORY: PAST SURGICAL HISTORY Procedure Laterality Date HYSTERECTOMY HX GERONIMO,BSO REMOVAL GALLBLADDER 2006 Cholecystectomy SOCIAL HISTORY: Social History Tobacco Use Smoking status: Former Current packs/day: 0.00 Types: Cigarettes Start date: 09/12/1967 Quit date: 09/11/1977 Years since quittin.9 Substance Use Topics Alcohol use: No Drug use: No Caffeine intake: 2 liter of coke / day working on cutting back Exercise: Physically active FAMILY HISTORY: Family history of breast cancer: Mother in her 60s, Paternal Aunt Family history of ovarian cancer: Maternal Grandmother Number of sisters: 1 Number of maternal aunts: 1 Number of paternal aunts: 4 Ashkenazi Ancestry: no Has Patient had Genetic Testing? No Other Cancer: Father with lung cancer, Brother with skin cancer, Maternal Grandmother with lung cancer, Sister with skin cancer, Paternal Uncle with leukemia There is no family history of prostate, colon, uterine, pancreatic, gastric, brain, renal cell or thyroid cancer. There is no family history of melanoma, sarcoma or leukemia. Osteoporosis: None Stroke: Mother Blood Clot: None Heart attack: Maternal Grandfather Thyroid Nodule or Goiter: None Autism: None FAMILY HISTORY Problem Relation Age of Onset Cancer Father lung cancer 2000 Breast Cancer Mother Breast removed 1999 Asthma Mother Cancer Brother skin and eye Cancer Maternal Grandmother stomach cancer Heart Maternal Grandfather heart attack MEDICATIONS: levothyroxine (SYNTHROID) 100 mcg ORAL tablet Take one(1) tablet daily on an empty stomach. ALLERGIES: ALLERGIES Not on File REVIEW OF SYSTEMS: GENERAL: No weight loss, malaise or fevers NECK: Negative for lumps, goiter, pain and significant neck swelling RESPIRATORY: Negative for cough, hemoptysis, wheezing, COPD, dyspnea or shortness of breath CARDIOVASCULAR: Negative for chest pain, leg swelling, hypertension, CHF or palpitations GI: No nausea, vomiting, or diarrhea : No history of dysuria, frequency or incontinence INSPECTION MACHINE TENDER: Negative for abnormal vaginal bleeding, abnormal vaginal discharge MUSCULOSKELETAL: Negative for joint pain or swelling, back pain or muscle pain SKIN: Negative for lesions, rash, and itching HEMATOLOGY/LYMPHOLOGY: Negative for prolonged bleeding, bruising easily or swollen nodes ENDOCRINE: Negative for cold or heat intolerance, polyuria, polydipsia and goiter The sensitive examination was discussed with the Patient or Patient's Authorized Roadmaster. As applicable, any other physician, advance practice provider, medical student, or other health professional student that will be observing or involved in the sensitive examination for educational or training purposes was discussed with the Patient or Authorized Roadmaster. The Patient or Authorized Roadmaster has agreed to proceed with the sensitive examination. (Sensitive examination includes inspection and/or palpation of the breasts, pelvis, prostate and anorectal regions) PHYSICAL EXAM: BP 152/66 Pulse 64 Temp 36.4 ?C (97.6 ?F) (Tempor (more content not included)... [facility] Evaluation note Note Date & Type Note Facility Evaluation note No assessment information availa ble [facility] Work Phone: Evaluation note Note Date & Type Note Facility Evaluation note Diagnosis Onset Date Acute sinusitis acute [facility] Work Phone: Reason for referral (narrative) Note Date & Type Note Facility Reason for referral (narrative) No reason for referral information available [facility] Work Phone: Chief Complaint and Reason for Visit Chief Complaint SCREENING Chief Complaint COUGH, CONCERN FOR S INUS INFECTION SCREENING Reason for Visit Acute sinusitis Chief Complaint Admit Date ANNUAL SCREENING June 14, 2024 2:26 pm Summary Purpose Family History No Family History Records FoundNo Family History Records Found Advance Directives No Advanced Directives Records FoundNo Advanced Directives Records Found Additional Source Comments Goals (unrecognized section and content) Goals may be documented in a n alternate sectionGoals may be documented in an alternate sectionGoals may be documented in an alternate sectionGoals may be documented in an alternate sectionGoals may be documented in an alternate sectionGoals may be documented in an alternate sectionGoals may be documented in an alternate section Care Teams (unrecognized sec tion and content) Team Status: Active Member Role Status Dates Dr. Luis E Cormier MD Family Provider Active Dr. Luis E Cormier MD Primary Care Provider Activ e Team Status: Inactive Member Role Status Dates Dr. Luis E Cormier MD Primary Care Provider, Attending Provider, Referring Provider Active Team Status: Inactive Member Role Status Dates Dr. Luis E Cormier MD Primary Care Provider, Refe rring Provider Active Alina Hussein MANAGEMENT TECHNICIAN-[place] Attending Provider Active Team Status: Inactive Member Role Status Dates Dr. Luis E Cormier MD Primary Care Provider, Atte nding Provider Active Team Status: Active Member Role Status Dates Dr. Marques Cormier MD Family Provider Active Dr. Marques Cormier MD Primary Care Provider Acti ve Team Status: Inactive Member Role Status Dates Dr. Marques Cormier MD Primary Care Provider, Ref erring Provider Active PIPER An Attending Provider Active Team Status: Inactive Member Role Status Dates Dr. Marques Cormier MD Primary Care Provider, Attending Provider, Referring Provider Active Team Status: Active Member Role Status Dates Dr. Marques Cormier MD Primary Care Provider Acti ve Team Status: Inactive Member Role Status Dates Dr. Marques Cormier MD Primary Care Provider Acti ve Start: June 14, 2024 End: June 14, 2024 Dr. Marques Cormier MD Attending Provider Active Start: June 14, 2024 End: June 14, 2024 Dr. Marques Cormier MD Referring Provider Active Start: June 14, 2024 End: June 14, 2024 Team Status: Active Member Role/Relationship Status Dates Dr. Marques Cormier MD Primary Care Provider Acti ve Team Status: Inactive Member Role/Relationship Status Dates Dr. Marques Cormier MD Primary Care Provider Acti ve Start: November 05, 2024 End: November 05, 2024 Dr. Marques Cormier MD Attending Provider Active Start: November 05, 2024 End: November 05, 2024 Dr. Marques Cormier MD Referring Provider Active Start: November 05, 2024 End: November 05, 2024 INFORMATION SOURCE (unrecogn ized section and content) DATE CREATED AUTHOR 08/05/2024 [facility] DATE CREATED AUTHOR 'S ORGANIZ ATION 11/10/2024 [facility] FOR RECORDS PERTAINING TO PATIENTS WHO ARE OR HAVE BEEN ENROLLED IN A CHEMICAL DEPENDENCY/SUBSTANCEABUSE PROGRAM, SOME INFORMATION MAY BE OMITTED. This clinical summary was aggregated from multiple sources. Caution should be exercised in using it in the provision of clinical care. This summary normalizes information from multiple sources, and as a consequence, information in this document may materially change the coding, format and clinical context of patient data. In addition, data may be omitted in some cases. CLINICAL DECISIONS SHOULD BE BASED ON THE PRIMARY CLINICAL RECORDS. [facility]. provides no warranty or guarantee of the accuracy or completeness of information in this document.
== END | disposition home or self-care (01) ==
LOC: OPBD 15:09
PROVIDERS: PCP Family Medicine; Referring Provider Family Medicine; Visit Provider Family Medicine
DX: Z78.0 Asymptomatic menopausal state (principal)
CPT/HCPCS: 77080; 77081

== ENCOUNTER → 2025-02-15 | Outpatient (CLI) | payer MEDICARE, OTHER, SELFPAY ==
[2025-02-15 18:05] LABS: Vitamin D,25 Hydroxy 42.5 ng/mL (30-100)
== END | disposition home or self-care (01) ==
LOC: MFPLAB 14:05
PROVIDERS: PCP Family Medicine; Visit Provider Family Medicine
DX: E55.9 Vitamin D deficiency, unspecified (principal)
CPT/HCPCS: 36415; 82306